=== PATIENT | female | born 1945 | race Caucasian/White ===

== ENCOUNTER 2023-08-14 04:09 | Day surgery (SDC) | payer OTHER, BC ==
[2023-08-13 12:17] VITALS: BMI 27.4
[2023-08-14 07:09] VITALS: RESP 18; TEMP 98.6
[2023-08-14] MEDS ORDERED: LIDOCAINE HCL 1%, 10 MG/ML (50 mL VIAL) INF ONE ×2 (08:25→08:50)
[2023-08-14 09:15] VITALS: BP 122/68; PULSE 72
== END 2023-08-14 09:25 | disposition home or self-care (01) ==
LOC: JASU-SURG 04:09
PROVIDERS: ATTEND Orthopaedic Surgery
PROC: 015D3ZZ Destruction of Femoral Nerve, Percutaneous Approach (ICD-10-PCS; 2023-08-14)
PROC: 015D3ZZ Destruction of Femoral Nerve, Percutaneous Approach (ICD-10-PCS; principal; 2023-08-14 08:45)
DX: M17.12 Unilateral primary osteoarthritis, left knee (principal)